=== PATIENT | male | born 1975 | race Caucasian/White ===

== ENCOUNTER 2024-06-07 21:11 | Inpatient (IN) | payer MEDICARE, OTHER, SELFPAY ==
[2024-06-07] VITALS (15 sets, daily range): BP systolic 106–138; BP diastolic 76–115
--- NOTE | 2024-06-07 13:04 | PHANOTE ---
Med Rec Note:
A bag of prescription bottles arrived with pt, medication added into pt's home med list. Unable to confirm medications with pt at this time.
[2024-06-07] MEDS: ATIVAN 1 MG IM (13:20)
--- NOTE | 2024-06-07 13:27 | ED.GENMED ---
History of Present Illness
<Leighton Saldana PA-C - Last Filed: 06/07/24 17:22>
General
Chief Complaint: Withdrawal Symptoms
Time Seen by Provider: 06/07/24 13:04
History of Present Illness
History of Present Illness:
Patient is a 48-year-old male with past medical history of alcohol use here today via EMS for a change in mental status. Per EMS patient was reportedly kicked out of her hotel and brought here for medical evaluation. He was confused and altered
and EMS was not able to provide any additional history. Medications were found at the patient's bedside which are included in the home medications list some of which include clonazepam, zolpidem, and oxazepam. Patient himself does report he was
staying at a hotel. He is requesting Ativan. He feels he is in alcohol withdrawal. He does not remember specifically when his last drink was but does report drinking earlier today. He denies drug use or abuse. He denies taking any extra
medications. He does report falling earlier today while in the bathroom and has severe lower back pain. He is not sure if he struck his head. He provides no additional complaints or problems.
Review of Systems
<Leighton Saldana PA-C - Last Filed: 06/07/24 17:22>
Review of Systems
All Other Systems: ROS reviewed and negative except as documented in HPI and ROS
Phy Exam
<Leighton Saldana PA-C - Last Filed: 06/07/24 17:22>
Physical Exam
Physical Exam:
GENERAL: Alert , appears uncomfortable, lying on his right side complaining of lower back pain
EYE: pupils equal and reactive, not constricted
NECK: Supple
ENT: o/p clr, mmm.
CARDIAC: Tachycardic rate, regular rhythm
LUNGS: Clear breath sounds bilaterally, no acute respiratory distress, no wheezes/rales/rhonchi
ABDOMEN: Soft, without focal tenderness, no r/g, no cvat
NEUROLOGICAL: Alert and oriented, no focal neuro deficits, mild tremors
SKIN: Warm and dry, skin intact.
MUSCULOSKELETAL: No edema, well perfused. No skin changes. No swelling or erythema along the lower back. There is uncomfortability along the back.
PSYCH: Normal and appropriate interaction
Course
<Leighton Saldana PA-C - Last Filed: 06/07/24 17:22>
Orders/Labs/Results
Orders:
Orders
06/07/24 12:57
Acetaminophen Urgent
Comment: ADD ON
Alcohol Urgent
Comprehensive Metabolic Panel Urgent
Creatine Phosphokinase Urgent
Comment: ADD ON
Salicylate Urgent
Comment: ADD ON
06/07/24 13:14
Electrocardiogram (*1) Urgent
Reason for Study: Tachycardia
EKG- Treatment ONCE
06/07/24 13:15
Multivitamin [Theragran] 1 tablet PO NOW STA
06/07/24 13:16
Thiamine Injection 100 mg IV NOW ONE
06/07/24 13:17
CT Head W/o Iv Contrast Urgent
Comment:
Reason For Exam: ams
06/07/24 13:18
Lorazepam [Ativan] 1 mg IM NOW STA
06/07/24 13:24
Complete Blood Count/With Diff Routine
Magnesium Urgent
Phosphorus Urgent
TSH Reflex To Free T4 Urgent
Lumbar Spine, 2 or 3 View [CR Lumbar Spine 2 Or 3 Views] Urgent
Comment:
Reason For Exam: fall
Thoracic Spine 3 Views CR [CR Thoracic Spine 3 Views] Urgent
Comment:
Reason For Exam: fall
06/07/24 13:35
Add On- LAB Urgent
Tests Added?: aspirin, acetaminophen, CPK
06/07/24 13:40
FOLic ACID [Folvite] 1 mg 0.9% Sodium Chloride 50 ml [Nss] 50 ml IV NOW
06/07/24 14:00
0.9% Sodium Chloride 1000 ml [Nss] 1,000 ml IV 100 mls/hr
06/07/24 14:12
Ketorolac [Toradol] 15 mg IV NOW STA
06/07/24 Dinner
NPO
Allow oral meds: Yes
Allow clear liquids: 4hrs prior to procedure
Comment: may have unrestricted clear liquid up to 4 hrs prior to scheduled procedure
06/07/24 16:46
Ketorolac [Toradol] 15 mg IV NOW STA
Lidocaine [Lidocaine 4% Patch] 1 patch TOPICAL ONCE ONE
Apply Lidocaine patch(s) to:: back
06/07/24 16:47
Ketorolac [Toradol] 15 mg .ROUTE .STK-MED ONE
Lidocaine [Lidocaine 4% Patch] 1 patch .ROUTE .STK-MED ONE
06/07/24 17:17
Urine Drug Abuse Screen Urgent
Date Specimen was Collected: 06/07/24
Time Specimen was Collected: 12:55
Abnormal Lab Results
06/07/24 06/07/24
12:57 13:24
WBC 4.3 L 10^3/uL
(4.8-10.8)
MCHC 32.3 L g/dL
(33.0-37.0)
RDW 22.1 H %
(11.5-14.5)
Sodium 146 H mmol/L
(135-145)
Carbon Dioxide 21 L mmol/L
(22-30)
Creatinine 0.6 L mg/dL
(0.7-1.3)
Glucose 110 H mg/dl
(70-99)
ALT 130 H U/L
(0-50)
Salicylates < 1.0 L mg/dl
(2.0-20.0)
Acetaminophen < 10 L ug/ml
(10-30)
06/07/24 13:24
06/07/24 12:57
Vital Signs
Initial and Last Documented VS:
Initial Vital Signs
Temp Pulse Resp BP Pulse Ox
98.0 F 99 16 106/84 100
06/07/24 13:12 06/07/24 13:12 06/07/24 13:12 06/07/24 13:12 06/07/24 13:12
Last Documented Vital Signs
Temp Pulse Resp BP Pulse Ox
99.0 F 102 15 116/89 100
06/07/24 16:42 06/07/24 16:15 06/07/24 16:15 06/07/24 15:00 06/07/24 15:48
<Sourav De La Cruz MD - Last Filed: 06/07/24 15:53>
Orders/Labs/Results
Orders:
Orders
06/07/24 12:57
Acetaminophen Urgent
Comment: ADD ON
Alcohol Urgent
Comprehensive Metabolic Panel Urgent
Creatine Phosphokinase Urgent
Comment: ADD ON
Salicylate Urgent
Comment: ADD ON
06/07/24 13:14
Electrocardiogram (*1) Urgent
Reason for Study: Tachycardia
EKG- Treatment ONCE
06/07/24 13:15
Multivitamin [Theragran] 1 tablet PO NOW STA
06/07/24 13:16
Thiamine Injection 100 mg IV NOW ONE
06/07/24 13:17
CT Head W/o Iv Contrast Urgent
Comment:
Reason For Exam: ams
06/07/24 13:18
Lorazepam [Ativan] 1 mg IM NOW STA
06/07/24 13:24
Complete Blood Count/With Diff Routine
Magnesium Urgent
Phosphorus Urgent
TSH Reflex To Free T4 Urgent
Lumbar Spine, 2 or 3 View [CR Lumbar Spine 2 Or 3 Views] Urgent
Comment:
Reason For Exam: fall
Thoracic Spine 3 Views CR [CR Thoracic Spine 3 Views] Urgent
Comment:
Reason For Exam: fall
06/07/24 13:35
Add On- LAB Urgent
Tests Added?: aspirin, acetaminophen, CPK
06/07/24 13:40
FOLic ACID [Folvite] 1 mg 0.9% Sodium Chloride 50 ml [Nss] 50 ml IV NOW
06/07/24 14:00
0.9% Sodium Chloride 1000 ml [Nss] 1,000 ml IV 100 mls/hr
06/07/24 14:12
Ketorolac [Toradol] 15 mg IV NOW STA
06/07/24 Dinner
NPO
Allow oral meds: Yes
Allow clear liquids: 4hrs prior to procedure
Comment: may have unrestricted clear liquid up to 4 hrs prior to scheduled procedure
06/07/24 16:46
Ketorolac [Toradol] 15 mg IV NOW STA
Lidocaine [Lidocaine 4% Patch] 1 patch TOPICAL ONCE ONE
Apply Lidocaine patch(s) to:: back
06/07/24 16:47
Ketorolac [Toradol] 15 mg .ROUTE .STK-MED ONE
Lidocaine [Lidocaine 4% Patch] 1 patch .ROUTE .STK-MED ONE
06/07/24 17:17
Urine Drug Abuse Screen Urgent
Date Specimen was Collected: 06/07/24
Time Specimen was Collected: 12:55
Abnormal Lab Results
06/07/24 06/07/24
12:57 13:24
WBC 4.3 L 10^3/uL
(4.8-10.8)
MCHC 32.3 L g/dL
(33.0-37.0)
RDW 22.1 H %
(11.5-14.5)
Sodium 146 H mmol/L
(135-145)
Carbon Dioxide 21 L mmol/L
(22-30)
Creatinine 0.6 L mg/dL
(0.7-1.3)
Glucose 110 H mg/dl
(70-99)
ALT 130 H U/L
(0-50)
Salicylates < 1.0 L mg/dl
(2.0-20.0)
Acetaminophen < 10 L ug/ml
(10-30)
06/07/24 13:24
06/07/24 12:57
Vital Signs
Initial and Last Documented VS:
Initial Vital Signs
Temp Pulse Resp BP Pulse Ox
98.0 F 99 16 106/84 100
06/07/24 13:12 06/07/24 13:12 06/07/24 13:12 06/07/24 13:12 06/07/24 13:12
Last Documented Vital Signs
Temp Pulse Resp BP Pulse Ox
99.0 F 102 15 116/89 100
06/07/24 16:42 06/07/24 16:15 06/07/24 16:15 06/07/24 15:00 06/07/24 15:48
<Leighton Saladna PA-C - Last Filed: 06/07/24 17:22>
MDM/Problems Addressed
Differential Diagnosis Includes:
Patient is a 48-year-old male with past medical history of alcohol use here today via EMS for a change in mental status. Overall, patient appears uncomfortable and anxious. He is requesting Ativan. Physical examination described above. I suspect
the patient is likely presenting with alcohol withdrawal. His findings appear mild to moderate in severity although he does not appear confused and is able to converse appropriately. He is complaining of significant lower back pain and reports
falling earlier. We will obtain a change in mental status workup in addition to thoracic and lumbar spine x-rays. Will provide 1 mg of IM Ativan and closely monitor and reassess.
Update: Screening labs grossly within normal limits aside from an elevated ALT. Alcohol level greater than 300. Imaging without evidence of traumatic findings. Patient reassessed after medication administration. He reports persistent back pain
but appears well overall. He is interested in rehabilitation for alcohol. Will plan to admit and will recommend monitoring for withdrawal symptoms. All questions answered. Stable for admission.
<Leighton Saldana PA-C - Last Filed: 06/07/24 17:22>
*EKG
Interpreted by ED Provider?: Yes
EKG Intrepretation Date: 06/07/24
EKG Intrepretation Time: 13:41
Interpretation: abnormal
Comparison EKG: no comparison EKG present
Heart Rate: 103
Rate: tachycardiac
Rhythm: sinus
[place]: normal axis
Interval: normal interval
QRS Pattern: normal QRS
Ischemia: no ischemia
*Critical Care Note
Total Time (30-74mins, 75-104mins- exclusive of procedures): Not Applicable
ED Attending Note
<Leighton Saldana PA-C - Last Filed: 06/07/24 17:22>
-
Portions of this chart may have been created with voice recognition software.� Occasional wrong word or��sound alike� substitutions may have occurred due to the inherent limitations of voice recognition software.
<Sourav De La Cruz MD - Last Filed: 06/07/24 15:53>
ED Attending Note
Patient seen and examined by attending physician: Yes
ED Attending Note:
I have seen and evaluated the patient with a [id number] encounter. I have spoken to the advance practicer provider and involved in the medical history, the physical exam, medical decision making.
Evaluation and management service: agree unless noted differently below.
Results interpretation: agree unless noted differently below.
Focused HPI: 48-year-old male with no reported past medical history presents to the ER via EMS intoxicated; he says that he had a fall and complains of some back pain. Patient says he was drinking heavily yesterday�denies any alcohol today. He
says that today he tripped and fell and injured his low back. He is not sure whether he hit his head. He says he has mild headache. He denies any other complaints. Per EMS report they felt patient was 'out of it.'
Physical exam: Patient somewhat agitated on arrival and received some Ativan for this. On my assessment he is resting comfortably. Tachycardic but otherwise normal vitals. His head is atraumatic. He is oriented x 3 with a GCS of 15. He has no
signs of trauma to the torso. No tenderness in the ribs or abdomen. Extremities appear atraumatic.
Medical Decision Makin-year-old male presents apparently intoxicated today; he says he had a trip and fall his chief complaint is back pain. He admits to drinking but says his last drink was yesterday. His alcohol level today is 324.
Initially was agitated and got some Ativan. Much more calm and cooperative thereafter. Vital signs and exam as above. Labs sent off including a CBC and a CMP which showed no clinically significant abnormalities. X-rays of the thoracic and lumbar
spine showed no acute traumatic injury. CT head read pending but no acute disease noted on my review. Will plan to observe to clinical sobriety. Fluids, thiamine, folate.
Discharge Plan
Departure
Patient Disposition: Admit
Date of Disposition: 06/07/24
Time of Disposition: 17:12
Admit to: Med/Surg
Admit to doctor: Pasha Kirk
Presentation/result/management discussed w/ accepting MD/DO: Hospitalist
Patient with high blood pressure during this ER visit?: No
Condition: Fair
Discharge Problem:
Alcohol abuse, Back pain
Prescriptions:
No Action
oxazepam 10 mg Capsule
10 mg PO BID
clonazepam 1 mg Tablet
1 mg PO BIDPRN PRN (Reason: anxiety)
doxepin 10 mg Capsule
10 mg PO HS
ferrous sulfate 325 mg (65 mg iron) Tablet
325 mg PO BID
omeprazole 20 mg Capsule,Delayed Release(Dr/Ec)
40 mg PO DAILY
hydroxyzine HCl 25 mg Tablet
50 mg PO Q6H
zolpidem 10 mg Tablet
10 mg PO HSPRN PRN (Reason: sleep)
oxazepam 30 mg Capsule
30 mg PO BID
Referrals:
Glenys Esparza MD [Family Provider] -
Interventions
Interventions:
*Risk Screen - Suicide Last Done: 06/07/24 14:19
*General Assessment Last Done: 06/07/24 12:48
*Neglect/Abuse Screening Last Done: 06/07/24 14:19
*ED COVID-19 Vaccine History Last Done: 06/07/24 12:48
ED-Psychological Assessment Last Done: 06/07/24 13:44
ED- Neurological Assessment Last Done: 06/07/24 14:19
Discharge Date and Time
Print Language: PAKISTANI
[2024-06-07 13:39] LABS: ALT (SGPT) 130 U/L (0-50); AST (SGOT) 57 U/L (17-59); Albumin 4.6 g/dl (3.5-5.0); Alkaline Phosphatase 83 U/L (38-126); Blood Urea Nitrogen 14 mg/dl (9-20); Calcium 8.9 mg/dl (8.4-10.2); Carbon Dioxide 21 mmol/L (22-30); Chloride 103 mmol/L (98-107); Glucose 110 mg/dl (70-99); Sodium 146 mmol/L (135-145); Total Bilirubin 0.5 mg/dl (0.2-1.3); eGFR > 60.00
[2024-06-07 13:51] LABS: Alcohol 324 mg/dl
[2024-06-07 13:52] LABS: Phosphorus 3.8 mg/dl (2.5-4.5)
[2024-06-07 14:01] LABS: % Basophils 1.6 % (0-2); % Eosinophils 0.5 % (0-6); % Immature Granulocytes 0.2 % (0-0.5); % Lymphocytes 29.2 % (20.5-51.1); % Monocytes 5.1 % (1.7-9.3); % Neutrophils 63.4 % (42.2-75.2); Absolute Basophils 0.1 10^3/uL (0-0.2); Absolute Lymphocytes 1.3 10^3/uL (1.2-3.4); Absolute Monocytes 0.2 10^3/uL (0.1-0.6); Absolute Neutrophils 2.7 10^3/uL (1.4-6.5); Hematocrit 40.5 % (39.0-52.0); Hemoglobin 13.1 g/dL (13.0-18.0); Mean Corp Hgb Conc. 32.3 g/dL (33.0-37.0); Mean Corpuscular Hgb 27.2 pg (27.0-31.0); Mean Corpuscular Volume 84.2 fL (80.0-94.0); Mean Platelet Volume 8.9 fL (7.4-10.4); Nucleated Red Blood Cells % 0 % (-); Platelet Count 267 10^3/uL (130-400); Red Blood Cell Count 4.81 10^6/uL (4.70-6.10); Red Cell Dist. Width 22.1 % (11.5-14.5); White Blood Cell Count 4.3 10^3/uL (4.8-10.8)
[2024-06-07] MEDS: THIAMINE INJECTION 100 MG IV (14:07)
[2024-06-07] MEDS: FOLVITE 50.2 MG IV (14:08)
[2024-06-07] MEDS: NSS 1000 IV ×2 (14:08→23:04)
[2024-06-07 14:15] LABS: Acetaminophen < 10 ug/ml (10-30); Creatine Phosphokinase 130 U/L (55-170); Salicylate < 1.0 mg/dl (2.0-20.0)
[2024-06-07] MEDS: TORADOL 15 MG IV ×2 (14:16→16:59)
[2024-06-07 14:17] LABS: Acanthocytes 1+; Anisocytosis 1+; Hypochromasia 2+; Normal RBC Morphology No; Other Cells 100; Ovalocytes 2+; Polychromasia 1+; Target Cells FEW
[2024-06-07 14:24] LABS: TSH Reflex To Free T4 0.91 uIU/ml (0.47-4.68)
[2024-06-07] MEDS: LIDOCAINE 4% PATCH 1 PATCH TOPICAL (16:59)
[2024-06-07] MEDS: ATIVAN 1 MG IV ×2 (18:05→18:55)
--- NOTE | 2024-06-07 20:30 | HPS.HSE ---
Family Physician
-
Family Physician: Glenys Esparza
Chief Complaint
-
Behavioral dysfunction at the Hotel
History of Present Illness
I could not get any information from the patient cannot recall why he is in ER and ETOH intoxication
Information gathered by chart review and speaking with the ER staff.
HPI
48M [facility] HX ETOH use disorder seen at ER for change in mental status.
- Per EMS patient was reportedly kicked out of her hotel and brought here for medical evaluation.
- He was confused and altered and EMS was not able to provide any additional history.
- He does not remember specifically when his last drink was but does report drinking earlier today.
- ETOH level 324 mg/dl upon arrival
- Home medications list include clonazepam, zolpidem, and oxazepam. He is requesting Ativan.
- He feels he is in alcohol withdrawal.
- He denies drug use or abuse.
- He does report falling earlier today while in the bathroom and has severe lower back pain.
- He is not sure if he struck his head. He provides no additional complaints or problems.
Medical History
Past Medical History
Past Medical History: Reports Psychiatric (Anxiety ) and Other (ETOH use diorder )
Past Surgical History: Reports Other
Social History
Alcohol: Daily
Drug: None
Living: Other (Just got kicked out of the hotel , suspect homeless )
Family History
Family History: Not pertinent
Allergies / Home Medications
Allergies reflects when Allergies were last updated in [facility].
Home Medications with original date entered in [facility]
Allergy/Medication List:
Allergies
Allergy/AdvReac Type Severity Reaction Status Date / Time
No Known Allergies Allergy Unverified 06/07/24 13:16
Home Medications
clonazepam 1 mg tablet 1 mg PO BIDPRN PRN anxiety 06/07/24
doxepin 10 mg capsule 10 mg PO HS 06/07/24
ferrous sulfate 325 mg (65 mg iron) tablet 325 mg PO BID 06/07/24
hydroxyzine HCl 25 mg tablet 50 mg PO Q6H 06/07/24
omeprazole 20 mg capsule,delayed release 40 mg PO DAILY 06/07/24
oxazepam 10 mg capsule 10 mg PO BID take w/ 30mg= 40mg 06/07/24
oxazepam 30 mg capsule 30 mg PO BID take w/ 10mg = 40mg 06/07/24
zolpidem 10 mg tablet 10 mg PO HSPRN PRN sleep 06/07/24
Review of Systems
-
History Source: Ambulance Crew, Physician and Coordinated Provider
Constitutional: Reports No Symptoms
EENT: Reports No Symptoms
Respiratory: Reports No Symptoms
Cardiac: Reports No Symptoms
Abdomen/GI: Reports No Symptoms
: Reports No Symptoms
Musculoskeletal: Reports No Symptoms
Skin: Reports No Symptoms
Neurological: Reports No Symptoms
Endocrine: Reports No Symptoms
Hematologic/Lymphatic: Reports No Symptoms
Psych: Reports No Symptoms
Physical Exam
Vital Signs
Vital Signs
Temp Pulse Resp BP Pulse Ox
99.3 F 127 14 126/86 99
06/07/24 19:51 06/07/24 20:15 06/07/24 20:15 06/07/24 19:00 06/07/24 20:00
Physical Exam
General: Well Developed, Well Nourished and No Apparent Distress
HEENT: NormoCephalic, Moist mucous membranes and Atraumatic
Respiratory: Clear
Cardiac: S1/S2 and Regular Rhythm; No Murmur or Rub
GI: Soft, Non Tender, Non Distended and Normal Bowel Sounds; No Organomegaly
Rectal: Deferred by Provider
Musculoskeletal: No Clubbing, No Cyanosis and No Edema
Skin: No Rash
Neuro: AO x 3, Nonfocal/grossly intact and Tremors
Laboratory Results
-
06/07/24 13:24
06/07/24 12:57
Laboratory Results
Total Bilirubin 0.5 mg/dl (0.2-1.3) 06/07/24 12:57
AST 57 U/L (17-59) 06/07/24 12:57
ALT 130 U/L (0-50) H 06/07/24 12:57
Alkaline Phosphatase 83 U/L (38-126) 06/07/24 12:57
Data Reviewed
-
Diagnostic Radiology: Report Reviewed by me
CT Scan: Report Reviewed by me
Lab Data: Labs Reviewed by me
Impression/Plan
-
VS
06/07/24
16:38 06/07/24
16:42 06/07/24
16:45
Temp 99.0 F
Pulse 110
Blood pressure 126/81
SaO2 100
Labs
06/07/24 06/07/24
12:57 13:24
WBC 4.3 L
Hgb 13.1
Sodium 146 H
Potassium 4.0
Carbon Dioxide 21 L
BUN 14
Creatinine 0.6 L
eGFR > 60.00
AST 57
ALT 130 H
Alkaline Phosphatase 83
TSH (Reflex) 0.91
Salicylates < 1.0 L
Acetaminophen < 10 L
Alcohol, Quantitative 324
EKG
SINUS TACHYCARDIA
OTHERWISE NORMAL ECG
NO PREVIOUS ECGS AVAILABLE
Confirmed by MD ELIECER, AGUSTÍN Sol ([id number]) on 06/07/2024 2:40:16 PM
Thx spine XR: Unremarkable radiographs of the thoracic spine.
Lx spine XR: Limited study. L1 vertebral body obscured on the lateral view. Mild disc disease at L4-5.
HCT:
No acute intracranial abnormality noted.
There is apparent mild global volume loss which is greater than expected for age.
No prior hospitalist admission:
ASSESSMENT & PLAN
Pending Rx reconciliation
Acute behavioral dysfunction with confusion
Associated significant tachycardia suspect element of of autonomic hyperarousal masking by initial hi ETOH level
DDX: ETOH / BZD WDS with at risk for DTs, acute ETOH intoxication
Severe ETOH use disorder
- Resume Clonazepam and Doxepin
- ETOH WD protocol will start PHB protocol in place of Oxazepam
- still tachycardia despite IV Ativan 2 mg
- Fall precaution
- To consider Psych consult if acute WDS cannot be contained
Severe ETOH use disorder
Presumed homelessness
- CRM consult
DVT Px: SQH
Full code
IMU
[2024-06-07 21:47] LABS: Amphetamines Negative (Negative); Barbiturates Positive (Negative); Benzodiazepines Positive (Negative); Buprenorphine Negative (Negative); Cocaine Negative (Negative); Marijuana Positive (Negative); Methadone Negative (Negative); Methamphetamines Negative (Negative); Opiates Negative (Negative); Phencyclidine Negative (Negative); Tricyclic Antidepressants Negative (Negative)
[2024-06-07 22:02] LABS: Fentanyl, Urine Negative (Negative)
--- NOTE | 2024-06-07 22:40 | PTCARENOTE ---
Received pt via bed from ED RN. Pt able to stand and pivot to ICU bed w/ assistance. Pt is unsteady on feet and c/o back and neck pain. Pt is A&Ox3, can move all 4 extremities, and can make needs known. Pt placed on tele monitor and is in NSR, has
no edema, and palpable pedal pulses bilaterally. Pt on RA satting at 97% pulse ox. On auscultation pt's lungs sound clear. Pt's abdomen is round w/ active BS. Skin is C/D/I.
[2024-06-07] MEDS: PHENOBARBITAL 104 MG IV (23:05)
[2024-06-07] MEDS: ATIVAN 1 MG PO (23:05)
[2024-06-07 23:27] LABS: GGTP 47 U/L (15-73)
--- NOTE | 2024-06-07 23:40 | PTCARENOTE ---
MSAS 5, PRN ativan administered per protocol.
[2024-06-07] MEDS: SINEQUAN 10 MG PO (23:41)
[2024-06-08] VITALS (11 sets, daily range): BP systolic 110–136; BP diastolic 73–97
--- NOTE | 2024-06-08 04:00 | PTCARENOTE ---
Upon reassessment pt is resting comfortably.
[2024-06-08] MEDS: PHENOBARBITAL 97.5 MG IV ×3 (08:13→21:48)
[2024-06-08] MEDS: FOLVITE 1 MG PO (08:13)
[2024-06-08] MEDS: NSS 1000 IV (08:26)
[2024-06-08] MEDS: THIAMINE INJECTION 200 MG IV (09:38)
[2024-06-08] MEDS: ATIVAN 1 MG PO ×4 (11:06→20:29)
[2024-06-08 12:13] LABS: ALT (SGPT) 89 U/L (0-50); AST (SGOT) 40 U/L (17-59); Albumin 3.7 g/dl (3.5-5.0); Alkaline Phosphatase 84 U/L (38-126); Blood Urea Nitrogen 13 mg/dl (9-20); Carbon Dioxide 28 mmol/L (22-30); Chloride 105 mmol/L (98-107); Glucose 109 mg/dl (70-99); Potassium 3.5 mmol/L (3.5-5.1); Sodium 140 mmol/L (135-145); Total Bilirubin 1.4 mg/dl (0.2-1.3); Total Protein 5.7 g/dl (6.3-8.2); eGFR > 60.00
[2024-06-08 12:41] LABS: Hemoglobin 9.8 g/dL (13.0-18.0); Mean Corp Hgb Conc. 32.7 g/dL (33.0-37.0); Mean Corpuscular Hgb 27.5 pg (27.0-31.0); Mean Platelet Volume 9.5 fL (7.4-10.4); Platelet Count 176 10^3/uL (130-400); Red Blood Cell Count 3.57 10^6/uL (4.70-6.10); Red Cell Dist. Width 21.2 % (11.5-14.5)
[2024-06-08] MEDS: KLONOPIN 1 MG PO ×2 (12:53→21:48)
--- NOTE | 2024-06-08 15:34 | W.PN.HOSP.TC ---
Today's Communication/Plan
-
IMU
phenobarb
Assessment / Plan
Assessment / Plan
NAD
Scleral Anicteric
DMM
No JVD
CTABL
RRR, S1/S2
Soft, NT, ND, BS+
Warm, Dry
AAOx3
Calm
Acute alcohol withdrawal with alcohol use disorder
Binge drinking x 4 days fifth of tea dose daily
[facility] consult
Thiamine folate phenobarbital as needed benzodiazepine
Normocytic Anemia without evidence of bleeding
-Outpt iron panel
Anticipated Discharge: > 48 hours
Subjective/Interval History
-
Date of Service: June 08, 2024
Seen and examined. Complaining of diarrhea.
Asking for phenobarbital as it helps with withdrawal symptoms
Objective Data
-
Labs:
Laboratory Results
06/08/24
11:44
WBC 5.0
Hgb 9.8 L D
Hct 30.0 L
Plt Count 176 D
Sodium 140
Potassium 3.5
Chloride 105
Carbon Dioxide 28
BUN 13
Creatinine 0.6 L
Glucose 109 H
Calcium 9.0
Total Bilirubin 1.4 H
AST 40
ALT 89 H
Alkaline Phosphatase 84
Vital Signs:
Vital Signs
Temp Pulse Resp BP Pulse Ox
98.6 F 91 18 135/93 98
06/08/24 12:18 06/08/24 13:45 06/08/24 13:45 06/08/24 13:07 06/08/24 13:45
I&O
06/07/24 06/08/24 06/09/24
06:59 06:59 06:59
Intake Total 1280 / 1360 640 / 640
Output Total 380 / 380 300 / 300
Balance 900 / 980 340 / 340
--- NOTE | 2024-06-08 16:01 | PTCARENOTE ---
Pt cooperative throughout shift, periods of anxiety/restlessness requiring PRN Ativan for MSAS 5-7 with +results. Ambulates to bathroom with supervision. Resting in bed when undisturbed.
--- NOTE | 2024-06-08 17:21 | CM ---
Alert awake oriented patient who lives with his mom Lily in a 2 story home with 0 step to enter. He is independent in driving and in all activities of daily living.He is ex . He is known to Pablo . Offered [facility] support he accepted.He is
requesting dual rehab at [facility] in [place] . Luis Shah notified and pt will need Psychiatry to see him . notified of request.
No VN hx / He has been to [facility] inpatient and has signed out.
Pharmacy [facility]
PCP DR Esparza
PLAN To inpatient rehab dual dx [facility] to assist
--- NOTE | 2024-06-08 18:57 | PTCARENOTE ---
attempted to place midline in both right and left arm. unsuccessful d/t unable to thread guidewire either side past approx 6cm, pt resting, primary RN aware
--- NOTE | 2024-06-08 18:57 | PTCARENOTE ---
KEIRA IV site infiltrated, IVF stopped and IV team notified. IV team unsuccessful after multiple attempts to place peripheral IV and midline. IV placed in right foot, MD rose texted.
[2024-06-08] MEDS: IMODIUM 2 MG PO (19:54)
[2024-06-08] MEDS: ZOFRAN 4 MG IV (20:03)
--- NOTE | 2024-06-08 20:13 | PTCARENOTE ---
Received pt from previous RN. Pt is AAOx3, MSAS protocol (see worklist), anxious, flat. NSR on the monitor. Pt refusing Heparin, education provided. On RA O2 sat 98%, lungs clear. Pt c/o diarrhea during the day PRN Imodium ordered and given (see
MAR). Pt c/o nausea, PRN Zofran given (see MAR). Pt uses the urinal. Offered pt new gown and warm wipes, pt refused hygiene. Call luong in reach. Safe environment maintained.
[2024-06-08] MEDS: SINEQUAN 10 MG PO (21:48)
[2024-06-09] VITALS (12 sets, daily range): BP systolic 94–131; BP diastolic 74–97
[2024-06-09] MEDS: ATIVAN 1 MG PO ×3 (05:01→22:02)
[2024-06-09 05:06] LABS: % Basophils 0.8 % (0-2); % Eosinophils 1.6 % (0-6); % Immature Granulocytes 0.4 % (0-0.5); % Lymphocytes 30.1 % (20.5-51.1); % Monocytes 5.2 % (1.7-9.3); % Neutrophils 61.9 % (42.2-75.2); Absolute Eosinophils 0.1 10^3/uL (0-0.7); Absolute Lymphocytes 1.5 10^3/uL (1.2-3.4); Absolute Monocytes 0.3 10^3/uL (0.1-0.6); Absolute Neutrophils 3.1 10^3/uL (1.4-6.5); Hemoglobin 10.4 g/dL (13.0-18.0); Mean Corp Hgb Conc. 32.5 g/dL (33.0-37.0); Mean Corpuscular Hgb 27.7 pg (27.0-31.0); Mean Corpuscular Volume 85.1 fL (80.0-94.0); Mean Platelet Volume 9.7 fL (7.4-10.4); Nucleated Red Blood Cells % 0 % (-); Platelet Count 153 10^3/uL (130-400); Red Blood Cell Count 3.76 10^6/uL (4.70-6.10); Red Cell Dist. Width 20.7 % (11.5-14.5)
[2024-06-09 05:33] LABS: Blood Urea Nitrogen 9 mg/dl (9-20); Carbon Dioxide 26 mmol/L (22-30); Chloride 105 mmol/L (98-107); Glucose 99 mg/dl (70-99); Potassium 3.5 mmol/L (3.5-5.1); Sodium 139 mmol/L (135-145); eGFR > 60.00
[2024-06-09] MEDS: PHENOBARBITAL 97.5 MG IV ×3 (08:27→21:00)
[2024-06-09] MEDS: FOLVITE 1 MG PO (08:27)
[2024-06-09] MEDS: THIAMINE INJECTION 200 MG IV (08:27)
[2024-06-09] MEDS: KLONOPIN 1 MG PO ×2 (08:35→20:53)
--- NOTE | 2024-06-09 11:52 | W.PN.HOSP.TC ---
Today's Communication/Plan
-
phenobarb taper
msas
iv ativan
thiamine, folate
follow up psych recs
Assessment / Plan
Assessment / Plan
NAD
Scleral Anicteric
DMM
No JVD
CTABL
RRR, S1/S2
Soft, NT, ND, BS+
Warm, Dry
AAOx3
Calm
Acute alcohol withdrawal with alcohol use disorder
Binge drinking x 4 days fifth of tea dose daily
As[facility] for [facility] consult
Thiamine folate phenobarbital as needed benzodiazepine
Normocytic Anemia without evidence of bleeding
-Outpt iron panel
Anticipated Discharge: > 48 hours
Subjective/Interval History
-
Date of Service: June 09, 2024
seen and examined. no new complaints. no acute overnight events
no agitation/hallucination
does have some anxiety and the shakes
Objective Data
-
Labs:
Laboratory Results
06/09/24
04:55
WBC 5.0
Hgb 10.4 L
Hct 32.0 L
Plt Count 153
Sodium 139
Potassium 3.5
Chloride 105
Carbon Dioxide 26
BUN 9
Creatinine 0.5 L
Glucose 99
Calcium 9.0
Vital Signs:
Vital Signs
Temp Pulse Resp BP Pulse Ox
98.3 F 79 15 103/74 98
06/09/24 08:37 06/09/24 10:00 06/09/24 10:00 06/09/24 10:00 06/09/24 10:00
I&O
06/08/24 06/09/24 06/10/24
06:59 06:59 06:59
Intake Total 1280 / 1360 1210 / 1210
Output Total 380 / 380 1300 / 1300 400 / 400
Balance 900 / 980 -90 / -90 -400 / -400
--- NOTE | 2024-06-09 14:19 | W.PN.UPDATE ---
Update Note
Progress Note Update
I tried to talk to the patient initially around 10:30 AM but he did not want to converse and was both drowsy and irritable. I came back just now and he was asleep.
He has not been agitated or combative.
We will F/U when he is awake and willing and able to provide information.
--- NOTE | 2024-06-09 16:38 | PTCARENOTE ---
Pt sleeping on and off throughout the day, intermittent anxiety, only needed 2 doses of PRN meds so far this shift for anxiety/MSAS. Monitor SR. Lungs CTA. BS, voiding in urinal.
[2024-06-09] MEDS: SINEQUAN 10 MG PO (21:00)
--- NOTE | 2024-06-09 21:22 | PTCARENOTE ---
Received pt from previous RN. Pt is AAOx3, anxious, flat. MSAS per protocol (see worklist). NSR on the monitor. On RA O2 sat 100%, lungs clear. Pt uses the urinal. PRN Klonopin given (see MAR). Pt refused hygiene. Call luong in reach. Safe
environment maintained.
[2024-06-10] VITALS (7 sets, daily range): BP systolic 93–113; BP diastolic 69–90
[2024-06-10] MEDS: THIAMINE INJECTION IV ×2 (08:10→08:25)
[2024-06-10] MEDS: FOLVITE 1 MG PO (08:10)
[2024-06-10] MEDS: LUMINAL 64.8 MG PO ×3 (08:10→22:26)
[2024-06-10] MEDS: ATIVAN 1 MG PO ×3 (08:17→22:25)
--- NOTE | 2024-06-10 08:27 | PTCARENOTE ---
Addendum entered by Alessandra Vigil RN 06/10/24 09:30:
patient c/o lower back pain, states he takes oxycodone 10 mg tid. enroller unable to obtain labs. patient only allowed one attempt. Dr Steele updated. Dr Steele requested pharmacy reconcile oxycodone script. pharmacist informed by tiger text
Original Note:
report received. assessments per work list. patient foot IV infiltrated, leaking. VAT team updated. they state they are unable to place IV site. hospitalist updated by tiger text. call luong in reach. ativan per apr
--- NOTE | 2024-06-10 08:46 | W.PN.HOSP.TC ---
Today's Communication/Plan
-
see plan
Assessment / Plan
Assessment / Plan
NAD
Scleral Anicteric
DMM
No JVD
CTABL
RRR, S1/S2
Soft, NT, ND, BS+
Warm, Dry
AAOx3
Calm
Acute alcohol withdrawal with alcohol use disorder
Binge drinking x 4 days
[facility]
-Phenobarbital taper
-MSAS with Ativan PRN
*patient does not have IV access. (no hx IVDA). Given MSAS stabilizing, he is now on PRN oral medications, OK to hold off. will attempt to get labs but if not can avoid if patient eating and drinking OK.
-OK for transfer to telemetry
-thiamine/folate
Normocytic Anemia without evidence of bleeding
-Outpt iron panel
Anticipated Discharge: 24 - 48 hours
Subjective/Interval History
-
Date of Service: June 10, 2024
continues to feel tremulous, just received ativan
Objective Data
-
Labs:
Laboratory Results
06/10/24
08:37
Sodium Pending
Potassium Pending
Chloride Pending
Carbon Dioxide Pending
BUN Pending
Creatinine Pending
Glucose Pending
Calcium Pending
Total Bilirubin Pending
AST Pending
ALT Pending
Alkaline Phosphatase Pending
Vital Signs:
Vital Signs
Temp Pulse Resp BP Pulse Ox
97.5 F 70 15 93/69 98
06/10/24 08:00 06/10/24 06:00 06/10/24 06:00 06/10/24 06:00 06/10/24 06:00
I&O
06/09/24 06/10/24 06/11/24
06:59 06:59 06:59
Intake Total 1210 / 1210 810 / 810
Output Total 1300 / 1300 950 / 950
Balance -90 / -90 -140 / -140
Review of Systems
-
History Source: Patient
All other systems: Reviewed and negative
Physical Exam
-
General: No Apparent Distress and Other (awoken to voice)
HEENT: PERRLA
Respiratory: Clear to Auscultation; Negative Wheezes
Cardiac: Regular Rhythm and S1/S2
GI: Soft, Nontender and Nondistended
Musculoskeletal: No Edema
Skin: Warm and Dry; Negative Rash
Neuro: AO x 3
Psych: Calm
Data Reviewed
-
Diagnostic Radiology: Report Reviewed by me
Labs: Labs Reviewed by me
[2024-06-10] MEDS: KLONOPIN 1 MG PO ×2 (09:05→16:56)
--- NOTE | 2024-06-10 09:26 | CM ---
Patient is known to [facility] and has been to inpatient previously with their help. Patient still agreeable to dual dx facility when medically cleared. Will need to engage in Psych evaluation.
Plan: Case management will continue to follow and assist with discharge planning. Dual facility upon discharge.
[2024-06-10] MEDS: ROXICODONE 5 MG PO ×2 (12:35→15:48)
--- NOTE | 2024-06-10 15:24 | W.PN.UPDATE ---
Update Note
Progress Note Update
Pt seen, reviewed with nursing staff. Pt sitting up in chair, eating lunch. Pt c/o the medications are not working enough for his anxiety and pain. 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
service-connected disability. Pt states plan to seek alcohol rehab/treatment for anxiety/PTSD at the [facility]. Pt alert, mostly oriented, mildly labile/tearful at times. No agitation, no overt signs of psychosis. Reviewed with nursing- pt has
prn Klonopin and Oxycodone, which he is receiving. Also has MSAS/Ativan, Phenobarb taper.
Imp: Alcohol Use d/o, severe
Unspecified anxiety, R/o hx of PTSD
Rec: continue current mgt; will follow
[2024-06-10] MEDS: DESENEX/MITRAZOL/ZEASORB 1 APPLIC TOPICAL ×2 (15:48→22:26)
--- NOTE | 2024-06-10 16:05 | PTCARENOTE ---
patient cooperative with care, forgetful at times but using call luong appropriately. participated with care today. oob to chair. prn medications per APR documentation. good appetite
[2024-06-10] MEDS: SINEQUAN 10 MG PO (22:26)
[2024-06-11 01:08] VITALS: BP 108/83
[2024-06-11 05:57] VITALS: BP 106/72
[2024-06-11] MEDS: KLONOPIN 1 MG PO (05:58)
--- NOTE | 2024-06-11 08:12 | W.PN.HOSP.TC ---
Today's Communication/Plan
-
continue phenobarb taper
consider cutting back Clonazepam in next 1-2 days when no longer requiring PRN ativan
appreciate Psychiatry
Assessment / Plan
Assessment / Plan
Acute alcohol withdrawal with alcohol use disorder
Binge drinking x 4 days
-on telemetry
-Phenobarbital taper
-MSAS with Ativan PRN - still receiving
-MEDICAL DOCTOR MD Clonazepam - consider cutting back; although he required Ativan on top of this
*patient does not have IV access. (no hx IVDA, states genetic). Given MSAS stabilizing, he is now on PRN oral medications, OK to hold off. unable to obtain labs but reassuring that he is eating and drinking OK.
-thiamine/folate
-appreciaate Psychiatry
Normocytic Anemia without evidence of bleeding
-Outpt iron panel
Anticipated Discharge: 24 - 48 hours
Subjective/Interval History
-
Date of Service: June 11, 2024
received Clonazepam this morning
Objective Data
-
Labs:
Laboratory Results
06/11/24
06:00
Sodium Pending
Potassium Pending
Chloride Pending
Carbon Dioxide Pending
BUN Pending
Creatinine Pending
Glucose Pending
Calcium Pending
Total Bilirubin Pending
AST Pending
ALT Pending
Alkaline Phosphatase Pending
Vital Signs:
Vital Signs
Temp Pulse Resp BP Pulse Ox
97.7 F 68 24 108/83 94
06/11/24 07:39 06/11/24 04:00 06/10/24 15:33 06/11/24 01:08 06/10/24 21:00
I&O
06/10/24 06/11/24 06/12/24
06:59 06:59 06:59
Intake Total 810 / 810 720 / 720
Output Total 950 / 950 900 / 900
Balance -140 / -140 -180 / -180
Review of Systems
-
History Source: Patient
All other systems: Reviewed and negative
Physical Exam
-
General: No Apparent Distress and Other (awoken to voice)
HEENT: PERRLA
Respiratory: Clear to Auscultation; Negative Wheezes
Cardiac: Regular Rhythm and S1/S2
GI: Soft, Nontender and Nondistended
Musculoskeletal: No Edema
Skin: Warm and Dry; Negative Rash
Neuro: AO x 3
Psych: Calm
Data Reviewed
-
Diagnostic Radiology: Report Reviewed by me
Labs: Labs Reviewed by me
[2024-06-11] MEDS: DESENEX/MITRAZOL/ZEASORB 1 APPLIC TOPICAL ×2 (08:45→20:29)
[2024-06-11] MEDS: VITAMIN B1 200 MG PO (08:46)
[2024-06-11] MEDS: FOLVITE 1 MG PO (08:46)
[2024-06-11] MEDS: LUMINAL 64.8 MG PO ×3 (08:46→22:01)
[2024-06-11] MEDS: PROTONIX 40 MG PO (08:46)
[2024-06-11 09:00] VITALS: BP 104/79
[2024-06-11 09:41] VITALS: BP 104/79
--- NOTE | 2024-06-11 09:59 | PTCARENOTE ---
pt is drowsy , he is responsive to vocal stimuli , NSR on monitor , MSAS 4 , with slight tremors and stating he is having 'weird dreams '. poor appetite , encouragement given to increase activity , currently refusing to get oob
[2024-06-11 13:26] VITALS: BP 110/90
--- NOTE | 2024-06-11 14:10 | CM ---
CM following re: discharge planning.
Reviewed pt's chart, met with pt.
Pt presents lying on the bed with normal mood, normal affect, direct oriented thoughts.
pt reports he wants to go to [facility] for inpatient D%A rehab. Pt reports he has been abusing alcohol for years, went to different D&A rehabs. Pt stated he really wants to go inpatient D&A rehab for 6 months. Pt stated he just left
[facility] and supposed to go to [facility] D&A rehab and they accepted him to go there 2 weeks ago. Pt expressed his agreement to meet with [facility] to facilitate inpatient D&A placement. Pt stated all his numbers to call
with his phone in his truck and he cannot call on his own.
Pt stated he just sold his house and staying with his mother.
CM spoke to [facility] JUANY Smith and he is meeting with the pt right now.
[facility] [phone] x [phone]. Voice message left with a request for direct placement.
D/C plan: [facility] for inpatient D&A rehab.
CM will follow with discharge plan updates as hospitalization progresses
[2024-06-11] MEDS: ATIVAN 1 MG PO (14:12)
--- NOTE | 2024-06-11 18:17 | PTCARENOTE ---
pt MSAS 3-5 today , he is drowsy , cooperative with nursing care , he is refusing medications that require needle sticks , ie, heparin or Lovenox
[2024-06-11] MEDS: KLONOPIN 0.5 MG PO (20:34)
[2024-06-11] MEDS: ROXICODONE 5 MG PO (20:34)
[2024-06-11] MEDS: SINEQUAN 10 MG PO (22:01)
[2024-06-11 22:06] VITALS: BP 112/77
[2024-06-12 02:08] VITALS: BP 109/89
[2024-06-12] MEDS: ATIVAN 1 MG PO (02:13)
[2024-06-12] MEDS: DESENEX/MITRAZOL/ZEASORB 1 APPLIC TOPICAL ×2 (07:55→20:00)
[2024-06-12] MEDS: VITAMIN B1 200 MG PO (07:55)
[2024-06-12] MEDS: LUMINAL 32.4 MG PO ×2 (07:55→20:01)
[2024-06-12] MEDS: PROTONIX 40 MG PO (07:55)
[2024-06-12] MEDS: FOLVITE 1 MG PO (07:55)
[2024-06-12 08:02] VITALS: BP 101/75
[2024-06-12] MEDS: KLONOPIN 0.5 MG PO ×3 (08:09→20:01)
[2024-06-12] MEDS: ROXICODONE 5 MG PO ×2 (08:12→20:01)
--- NOTE | 2024-06-12 08:20 | PTCARENOTE ---
Received pt sleeping.Awakens to voice.Speech is appropriate.MSAS 0.Pt requested and received Klonopin for anxiety and Oxycodone for low back pain 10/06.Pt repositions self independently.SR noted.POX 100% on RA.Lungs CTA.Breakfast ordered.Voided 225
ml yellow urine.Plan of care discussed with pt.
--- NOTE | 2024-06-12 08:33 | W.PN.HOSP.TC ---
Today's Communication/Plan
-
space out phenobarb taper with plans to hopefully DC to acute rehab on Monday. Patient plans to drive there - cannot give benzodiazepines on Monday morning
Assessment / Plan
Assessment / Plan
Acute alcohol withdrawal with alcohol use disorder
Binge drinking x 4 days
-on telemetry
-Phenobarbital taper --> will decrease frequency to BID and stop tomorrow morning with plans to discharge on Monday. Patient plans to go to inpatient rehab.
-MSAS with Ativan PRN - still receiving
-AUTOMATIC LATHE SETTER Clonazepam - decreased dose; patient states he will not get this at rehab
*patient does not have IV access. (no hx IVDA, states genetic). Given MSAS stabilizing, he is now on PRN oral medications, OK to hold off. unable to obtain labs but reassuring that he is eating and drinking OK. He is willing to try to obtain labs
againt his morning
-thiamine/folate
-appreciate Psychiatry
Normocytic Anemia without evidence of bleeding
-add on iron studies
outpatient follow up
DVT PPx lovenox subQ
FULL CODE
Anticipated Discharge: 24 - 48 hours
Subjective/Interval History
-
Date of Service: June 12, 2024
more awake/alert this morning
he just ordered breakfast
getting up and walking to the bathroom
Objective Data
-
Labs:
Laboratory Results
06/12/24
06:00
WBC Pending
Hgb Pending
Hct Pending
Plt Count Pending
Sodium Pending
Potassium Pending
Chloride Pending
Carbon Dioxide Pending
BUN Pending
Creatinine Pending
Glucose Pending
Calcium Pending
Vital Signs:
Vital Signs
Temp Pulse Resp BP Pulse Ox
97.8 F 81 12 101/75 94
06/12/24 07:45 04/16/25 08:02 06/11/24 09:00 06/12/24 08:02 06/10/24 21:00
I&O
06/11/24 06/12/24 06/13/24
06:59 06:59 06:59
Intake Total 720 / 720 240 / 240
Output Total 900 / 900 330 / 330 225 / 225
Balance -180 / -180 -330 / -330
Review of Systems
-
History Source: Patient
All other systems: Reviewed and negative
Physical Exam
-
General: No Apparent Distress
HEENT: PERRLA
Respiratory: Clear to Auscultation; Negative Wheezes
Cardiac: Regular Rhythm and S1/S2
GI: Soft, Nontender and Nondistended
Musculoskeletal: No Edema
Skin: Warm and Dry; Negative Rash
Neuro: AO x 3
Psych: Calm
Data Reviewed
-
Diagnostic Radiology: Report Reviewed by me
Labs: Labs Reviewed by me
[2024-06-12 10:49] LABS: Hematocrit 32.5 % (39.0-52.0); Hemoglobin 10.5 g/dL (13.0-18.0); Mean Corp Hgb Conc. 32.3 g/dL (33.0-37.0); Mean Corpuscular Hgb 27.9 pg (27.0-31.0); Mean Corpuscular Volume 86.4 fL (80.0-94.0); Mean Platelet Volume 10.1 fL (7.4-10.4); Platelet Count 128 10^3/uL (130-400); Red Blood Cell Count 3.76 10^6/uL (4.70-6.10); White Blood Cell Count 4.1 10^3/uL (4.8-10.8)
[2024-06-12 11:46] LABS: Blood Urea Nitrogen 13 mg/dl (9-20); Calcium 9.1 mg/dl (8.4-10.2); Carbon Dioxide 26 mmol/L (22-30); Chloride 104 mmol/L (98-107); Glucose 117 mg/dl (70-99); Iron 43 ug/dl (49-181); Sodium 138 mmol/L (135-145); eGFR > 60.00
[2024-06-12 11:56] LABS: Percent Saturation 13 % (20-50); Total Iron Binding Capacity 312 ug/dl (261-462)
[2024-06-12 12:38] VITALS: BP 108/83
--- NOTE | 2024-06-12 12:55 | PTCARENOTE ---
Pt assessed.No change in assessment noted.
--- NOTE | 2024-06-12 14:20 | CM ---
CM following re: discharge planning.
Reviewed pt's chart, met with pt.
PATT HARRINGTON Luis met with pt yesterday and pt preferred to return back home at discharge and he will report to [facility] when he is ready. Pt stated he supposed to go to Inpatient D&A rehab from [facility] but
he chose to go home first and ended up at [facility]. Pt has [facility] inpatient D&A rehab phone number to call to coordinate his admission there [phone].
Pt stated his truck is parked on the parking lot at [facility] and he will need help with getting there. Pt stated he has no money with him.
Pt stated he just sold his house and staying with his mother.
D/C plan: [facility] for inpatient D&A rehab. Pt will need Lyft to get to [facility] to get to his truck.
CM will follow with discharge plan updates as hospitalization progresses
--- NOTE | 2024-06-12 14:43 | W.PN.UPDATE ---
Update Note
Progress Note Update
patient seen chart reviewed. discussed with nursing. the patient reports he continues to feel anxious. his vital signs look good. he is not tremulous or sweating. he says ativan does not help him. in any case he does not meet generally as per
nursing and my observation of his this afternoon msas criteria for etoh wd. his last drink was last night. will dc msas. continue w phenobarb. would continue for now with the clonazepam prn although as dr dorado wrote in her note when he
is dc later this week perhaps tomorrow and drives to the [facility] which is his plan after he picks up his truck he should not take clonazepam. patient has had up to one year sobriety. he says he is motivated to begin in earnest the quest for
sobriety again and plans another rehab stay after the [place]. patient shared w me that his mother whom he was visiting in [place] has dementia which is a stress for him. he also spoke of his [place] the trauma he continues to deal
with. other than dc msas i did not make any changes in his psych medications. psych will look in on him tomorrow if he is still here.
[2024-06-12 15:21] VITALS: BP 136/89
--- NOTE | 2024-06-12 16:09 | PTCARENOTE ---
Pt assessed.No change in assessment noted.
[2024-06-12 17:06] LABS: Ferritin 25.7 ng/ml (17.9-464.0)
[2024-06-12 17:20] LABS: Vitamin B12 451 pg/ml (239-931)
[2024-06-12 19:06] VITALS: BP 115/87
[2024-06-12] MEDS: SINEQUAN 10 MG PO (20:01)
--- NOTE | 2024-06-12 22:09 | PTCARENOTE ---
Patient aao x3 at start of shift. C/o pain 10/06, prn medication administered with positive results noted. Patient c/o anxiety as well, prn meds administered as well with positive results. NSR on the monitor. Patient continues without IV access,
providers aware. Will continue to monitor patient closely.
[2024-06-12 23:28] VITALS: BP 106/81
[2024-06-13] VITALS (7 sets, daily range): BP systolic 95–122; BP diastolic 73–92
[2024-06-13] MEDS: ROXICODONE 5 MG PO (02:39)
--- NOTE | 2024-06-13 08:00 | PTCARENOTE ---
Pt rec'd from night RN 07:15, AOx3 pleasant and cooperative, c/o anxiety related to nightmare. PRN Klonipin administered per orders. Meds and assessment as documented, VSS, no longer requiring telemetry monitoring, tele pack removed. Pt asking to
shave and shower, set up with linens and supplies. Call rec'd this am from [facility], this RN returned call and spoke with Yazan; message passed to Bhavesh Horne Mgr. to call her after 0900 to begin setting up transfer. Plan also
discussed with Dr. Steele, pt potentially to be discharged first thing Monday am. Phenobarb taper now completed, last dose given this am. Pt updated with plan of care, verbalized agreement and understanding. Pt consumed most of breakfast tray, now
resting quietly when undisturbed. Safe environment maintained.
--- NOTE | 2024-06-13 08:00 | W.PN.HOSP.TC ---
Today's Communication/Plan
-
plan to DC early tomorrow AM
complete phenobarb taper today
Assessment / Plan
Assessment / Plan
Acute alcohol withdrawal with alcohol use disorder
Binge drinking x 4 days
-on telemetry
-Phenobarbital taper --> last day of shortened taper is today
-MSAS stopped
-PEER TUTOR Clonazepam - decreased dose;
-thiamine/folate
-appreciate Psychiatry
-patient plans to go to inpatient rehab at [place] tomorrow; plan for early AM DC
Normocytic Anemia without evidence of bleeding
-add on iron studies
outpatient follow up
DVT PPx lovenox subQ
FULL CODE
Anticipated Discharge: Within 24 hours
Subjective/Interval History
-
Date of Service: June 13, 2024
feeling well, a little anxious this morning
Objective Data
-
Vital Signs:
Vital Signs
Temp Pulse Resp BP Pulse Ox
97.9 F 86 12 95/73 94
06/13/24 03:50 06/13/24 04:00 06/11/24 09:00 06/13/24 03:37 06/10/24 21:00
I&O
06/12/24 06/13/24 06/14/24
06:59 06:59 06:59
Intake Total 480 / 480
Output Total 330 / 330 550 / 550
Balance -330 / -330 -70 / -70
Review of Systems
-
History Source: Patient
All other systems: Reviewed and negative
Physical Exam
-
General: No Apparent Distress
HEENT: PERRLA
Respiratory: Clear to Auscultation; Negative Wheezes
Cardiac: Regular Rhythm and S1/S2
GI: Soft, Nontender and Nondistended
Musculoskeletal: No Edema
Skin: Warm and Dry; Negative Rash
Neuro: AO x 3
Psych: Calm
Data Reviewed
-
Diagnostic Radiology: Report Reviewed by me
Labs: Labs Reviewed by me
[2024-06-13] MEDS: DESENEX/MITRAZOL/ZEASORB 1 APPLIC TOPICAL ×2 (08:09→21:03)
[2024-06-13] MEDS: FOLVITE 1 MG PO (08:10)
[2024-06-13] MEDS: VITAMIN B1 200 MG PO (08:10)
[2024-06-13] MEDS: LUMINAL 32.4 MG PO (08:10)
[2024-06-13] MEDS: KLONOPIN 0.5 MG PO ×2 (08:10→21:03)
[2024-06-13] MEDS: PROTONIX 40 MG PO (08:10)
--- NOTE | 2024-06-13 14:01 | CM ---
CM following re: discharge planning.
Reviewed pt's chart, met with pt.
CM spoke to [facility] D&A rehab unit logistics service representative Keshawn and he confirmed he spoke to the pt and a plan is that pt will stay with his mother till Monday and on Monday06/17/24 pt will report to [facility] Inpatient D&A
rehab. Requested pt's clinical faxed to [facility] inpatient D&A rehab at [phone].
Pt stated his truck is parked on the parking lot at [facility] at [address] and he will need help with getting there. Pt stated he has no money with him. CM will arrange Lyft.
Pt stated he just sold his house and staying with his mother.
Please fax discharge instructions to [facility] inpatient D&A rehab at [phone]
D/C plan: [facility] for inpatient D&A rehab on Monday06/17/24. Pt will need Lyft to get to [facility] to get to his truck.
CM will follow with discharge plan updates as hospitalization progresses
[2024-06-13] MEDS: TYLENOL 650 MG PO (14:03)
--- NOTE | 2024-06-13 15:23 | W.PN.UPDATE ---
Update Note
Progress Note Update
patient seen chart reviewed. mr aguilar is in good spirits at this point and remains fully committed to complete sobriety. he is likely to be dc tomorrow to home. he will pear picker his phone which happily he has found at the hotel he was staying at and
then [facility] the [facility] before settting out for admit to the [facility] on monday . he is complaining of plantar fasciitis for which he had been receiving rx as out pt in the form of cortisone shots. i did call the slurry mixer on
call dr ladd but he said he would only do this as an out pt. mr aguilar does know someone in [place] who may help him. he talked about his plans for the future. 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 of course he will need sobriety to
be successful at most any mob. offered support. last day of phenobarb is today. i doubt rehab is going to allow him to continue the klonopin. it will need to be tapered and he should not receive it before driving tomorrow. psych signing off
--- NOTE | 2024-06-13 15:56 | PTCARENOTE ---
Pt reassessed. No changes to assessment, pt is pleasant and cooperative, appreciative of care. He requested Tylenol for his plantar faciitis foot pain which is exacerbated by ambulating in socks. Pt did shave and shower today, +appetite, toileting
self PRN. Ambulating in room and martinez, gait appears painful but steady. Safe environment continues.
--- NOTE | 2024-06-13 20:00 | PTCARENOTE ---
rec`d pt at 1900 AAOx3. assessment as documented. pleasant. ambulates in room by self. safe environment maintained. call luong in reach.
[2024-06-13] MEDS: SINEQUAN 10 MG PO (21:03)
[2024-06-13] MEDS: MELATONIN 5 MG PO (21:03)
--- NOTE | 2024-06-13 23:42 | PTCARENOTE ---
report given to 3 hankins. pt transferred over to 3rd floor.
[2024-06-14] MEDS: KLONOPIN 0.5 MG PO (00:25)
--- NOTE | 2024-06-14 00:30 | PTCARENOTE ---
Pt transferred from IMU to 3W. Pt independent from wheelchair to bed, vitals obtained and stable. Pt AAOX3, pleasant and cooperative. Oriented to room, call luong within reach.
[2024-06-14 07:20] VITALS: BP 108/78
[2024-06-14] MEDS: PROTONIX 40 MG PO (08:10)
[2024-06-14] MEDS: FOLVITE 1 MG PO (08:10)
[2024-06-14] MEDS: VITAMIN B1 200 MG PO (08:15)
[2024-06-14] MEDS: DESENEX/MITRAZOL/ZEASORB TOPICAL (08:20)
--- NOTE | 2024-06-14 08:57 | W.DS.TRANS ---
DC Summary - Admission Specialist
-
Discharge Instructions:
Discharge Diagnosis/Procedures alcohol withdrawal
Diet Regular
Activity As tolerated
Driving Restrictions As prior to admission
Bathing Restrictions None
Instructions:
Stand-Alone Forms:
Changes to Home Medications: Yes
Discharge Medications:
DC Medications w/original date entered in [employer]
doxepin 10 mg capsule 10 mg PO HS Mental Health/Anxiety 06/07/24
ferrous sulfate 325 mg (65 mg iron) tablet 325 mg PO DAILY Supplement 06/07/24
omeprazole 20 mg capsule,delayed release 40 mg PO DAILY Gastrointestinal Issue 06/07/24
zolpidem 10 mg tablet 10 mg PO HS Sleep 06/07/24
oxycodone 10 mg tablet 10 mg PO BID Pain 06/10/24
clonazepam 1 mg tablet 0.5 mg (1/2 x 1 mg) PO BIDPRN PRN anxiety #0 tabs 06/14/24
folic acid 1 mg tablet 1 mg PO DAILY #30 tabs 06/14/24
thiamine mononitrate (vit B1) 100 mg tablet 200 mg (2 x 100 mg) PO DAILY #30 tabs 06/14/24
Home Medication Changes
Clonazepam dosing decreasing
Pending Results: No
--- NOTE | 2024-06-14 09:00 | W.PN.HOSP.TC ---
Today's Communication/Plan
-
DC today
Assessment / Plan
Assessment / Plan
Acute alcohol withdrawal with alcohol use disorder
Binge drinking x 4 days
-on telemetry
-Phenobarbital taper now complete and patient without need for additional benzodiazepines
-MSAS stopped
-COIN COLLECTOR Clonazepam - decreased dose; has not taken this morning and states will not take at rehab
-thiamine/folate
-appreciate Psychiatry
-patient plans to go to inpatient rehab at [place] today --> Ok for DC
Normocytic Anemia without evidence of bleeding
-add on iron studies
outpatient follow up
DVT PPx lovenox subQ
FULL CODE
Anticipated Discharge: Today
Subjective/Interval History
-
Date of Service: June 14, 2024
feeling well
wants to go home
he has plans for rehab
Objective Data
-
Vital Signs:
Vital Signs
Temp Pulse Resp BP Pulse Ox
97.6 F 89 16 108/78 99
06/14/24 07:20 06/14/24 07:20 06/14/24 07:20 06/14/24 07:20 06/14/24 07:20
I&O
06/13/24 06/14/24 06/15/24
06:59 06:59 06:59
Intake Total 480 / 480 480 / 480
Output Total 550 / 550 250 / 250
Balance -70 / -70 230 / 230
Review of Systems
-
History Source: Patient
All other systems: Reviewed and negative
Physical Exam
-
General: No Apparent Distress
HEENT: PERRLA
Respiratory: Clear to Auscultation; Negative Wheezes
Cardiac: Regular Rhythm and S1/S2
GI: Soft, Nontender and Nondistended
Musculoskeletal: No Edema
Skin: Warm and Dry; Negative Rash
Neuro: AO x 3
Psych: Calm
Data Reviewed
-
Diagnostic Radiology: Report Reviewed by me
Labs: Labs Reviewed by me
--- NOTE | 2024-06-14 10:34 | CM ---
Addendum entered by Jessi Nieto 06/14/24 12:10:
Patient Lyft ride ordered
Jose [employer] Gupta [employer] [id number]
Observed patient in car
Original Note:
Met with patient
IMM explained & signed. In chart
Patient will require LYFT to [facility] [address], [place] as his truck is parked there
He will be staying with his mother until Saturday 06/17 then will report to [place] D&A rehab clinicals were faxed by previous CM
PLAN: discharge to mother's house until Monday, then will report to [place] D&A rehab
fax discharge instructions to [facility] inpatient D&A rehab at [phone]
will obtain Lyft for transportation
[2024-06-14 11:00] VITALS: BP 119/91
--- NOTE | 2024-06-14 12:31 | W.DCSUMMARY ---
Discharge Summary
Discharge Data
Date of Admission: 06/07/24
Date of Discharge: 06/14/24
-
Pending Results: No
Hospital Course
Discharging Physician : Dr. Katherine Steele
Disposition : Home
Primary care physician : Dr. Gabriel Esparza
Principal Discharge diagnosis : Alcohol Withdrawal
Hospital Course :
Mr. Charanjit Ndiaye is a 48 yo man with hx alcohol use disorder presents to the ER with alcohol intoxication/change in mentation. Triage vitals stable. Labs with Na 146, Cr 0.6, WBC 4.3, Hg 13.1, PLT 267. Head CT without acute abnormality and Lumbar
and Thoracic spine x-ray without acute disease.
He was admitted to medicine with Psychiatry consulting for treatment of Alcohol Withdrawal. He was placed on a Phenobarbital taper and MSAS protocol. Patient's mentation improved. He has completed taper prior to discharge and plans to enroll in in
patient rehab at the [place].
Patient is prescribed benzodiazepines as outpatient but states he does not take them every day.
Time spent on discharge was 35 minutes.
Important imaging findings :
HEAD CT
IMPRESSION:
No acute intracranial abnormality noted.
There is apparent miLd global volume loss which is greater than expected for age.
LUMBAR SPINE X-RAY
IMPRESSION:
Limited study. L1 vertebral body obscured on the lateral view.
Mild disc disease at L4-5.
THORACIC SPINE X-RAY
IMPRESSION:
Unremarkable radiographs of the thoracic spine.
Procedure findings :
Discharge Plan
-
Patient Disposition: Home (Routine Discharge)
Discharge Diagnosis/Procedures: alcohol withdrawal
Diet: Regular
Activity: As tolerated
Driving Restrictions: As prior to admission
Bathing Restrictions: None
Referrals:
Corbin Rossi MD [Active] - (follow up for iron deficiency anemia work-up)
Glenys Esparza MD [Family Provider] - in less than 1 week
Prescriptions:
New
folic acid 1 mg Tablet
1 mg PO DAILY Qty: 30 0RF
thiamine mononitrate (vit B1) 100 mg Tablet
200 mg PO DAILY Qty: 30 0RF
Continued
doxepin 10 mg Capsule
10 mg PO HS
Patient Comments:
patient does not know if he takes this
ferrous sulfate 325 mg (65 mg iron) Tablet
325 mg PO DAILY
omeprazole 20 mg Capsule,Delayed Release(Dr/Ec)
40 mg PO DAILY
zolpidem 10 mg Tablet
10 mg PO HS
oxycodone 10 mg Tablet
10 mg PO BID
Changed
clonazepam 1 mg Tablet
0.5 mg PO BIDPRN PRN (Reason: anxiety) Qty: 0 0RF
Discontinued
oxazepam 10 mg Capsule
10 mg PO BID
Patient Comments:
unsure if he takes
hydroxyzine HCl 25 mg Tablet
50 mg PO Q6H
Patient Comments:
patient isnt sure if he takes
oxazepam 30 mg Capsule
30 mg PO BID
Discharge Orders:
Discharge Patient (As Directed); Ordered 06/14/24
Ordered By: Katherine Steele
Discharge Date and Time
Discharge Date/Time: 06/14/24 11:53
Print Language: LUX[place]
[2024-06-14 15:01] LABS: Transferrin 239 mg/dL (200-360)
== END 2024-06-14 11:53 | disposition home or self-care (01) | DRG 897 ==
LOC: 3 WEST ACU 21:11
PROVIDERS: Nurse Practitioner Family; Physician Assistant; ADMITTING PHYSICIAN Internal Medicine; ATTENDING PHYSICIAN Student in an Organized Health Care Education/Training Program; EMERGENCY PHYSICIAN Emergency Medicine; FAMILY PHYSICIAN Internal Medicine
DX: F10.239 Alcohol dependence with withdrawal, unspecified (principal); Z59.00 Homelessness unspecified; F10.229 Alcohol dependence with intoxication, unspecified; F43.10 Post-traumatic stress disorder, unspecified; F41.9 Anxiety disorder, unspecified; D64.9 Anemia, unspecified; Y90.8 Blood alcohol level of 240 mg/100 ml or more; Z79.899 Other long term (current) drug therapy
CPT/HCPCS: 70450; 72072; 72100; 80048; 80053; 80143; 80179; 80306; 80307; 82077; 82550; 82607; 82728; 82977; 83540; 83550; 83735; 84100; 84443; 84466; 85025; 85027; 93005; 96361; 96372; 96374; 96375; 96376; 99285; 99406